=== PATIENT | female | born 1990 | race African-American/Black ===

== ENCOUNTER 2020-01-17 16:08 | Emergency (ER) | payer OTHER, MEDICAID ==
[~2020-01-17] VITALS: Ht 157.5 cm; Wt 46.3 kg
[2020-01-17 18:13] VITALS: BP 126/74
== END 2020-01-17 19:12 | disposition home or self-care (01) ==
LOC: ER 16:08
DX: S01.511A Laceration without foreign body of lip, initial encounter (principal); S89.90XA Unspecified injury of unspecified lower leg, initial encounter; S20.219A Contusion of unspecified front wall of thorax, initial encounter; V49.9XXA Car occupant (driver) (passenger) injured in unspecified traffic accident, initial encounter; Y93.89 Activity, other specified; Y92.89 Other specified places as the place of occurrence of the external cause; Y99.8 Other external cause status
CPT/HCPCS: 12013; 70486; 71046; 73562